=== PATIENT | male | born 1955 | race Caucasian/White ===

== ENCOUNTER → 2017-05-28 | Outpatient (CLI) | payer MEDICAID ==
[~2017-05-28] MED LIST: ASPIRIN FOR CHI81 MG PO; B COMPLEX 501 TAB PO; CYMBALTA60 MG PO; HYCODAN 5MG. TAB5 MG PO; LEVAQUIN 750 M750 MG PO; PREDNISONE 20MG20 MG PO; VENTOLIN H0.09 MG/AC IH
--- NOTE | 2017-05-31 07:23 | RADIOLOGY REPORT PS360 ---
EXAM: CT LUNG LOW DOSE WO CONTRAST COMPARISON: None HISTORY: 62 year old male with greater than 30 pack-year smoking history, asymptomatic ORDERING PHYSICIAN: JANAE HALE MD PATIENT AGE: 62 years TECHNIQUE: The exam was performed on a GE Light Speed [address] scanner using 2.96 mGy CTDI. A low dose helical CT CHEST was performed on a multi-detector scanner The LDCT was performed in a facility that meets the criteria for the screening program. Data regarding this exam was submitted to [employer] which is an approved registry. The order for this exam indicates that it came as a result of a lung cancer screening counseling shard decision-making visit that included all the elements required of such a visit including smoking cessation. The radiologist interpreting this exam meets the [facility] criteria for the LDCT lung cancer screening program. The exam is reported using the Lung-RADS classification scale and reported to the [employer] registry. NOTE: This study was performed for the specific purposes of lung cancer screening and is not an alternative to diagnostic chest CT. RADIATION DOSE: CTDI vol(CT dose Index-volume) = 2.96mG DLP (Dose Length Product) = 115.89 mGcm FINDINGS: There are severe bullous emphysematous changes with centrilobular and panlobular emphysema right greater than left there is evidence of old granulomatous disease. Calcified granuloma with some mild parenchymal distortion is present in the right upper lobe laterally. No suspicious pulmonary nodules are evident. There are scattered areas of parenchymal fibrosis. Scattered small lymph nodes are present in the mediastinum. There are coronary artery calcifications. No change 14 mm left adrenal nodule. There is an isodensity in the right hepatic lobe posteriorly unchanged IMPRESSION: 1. Lung RADS Category: 2, benign 2. Other findings: Bullous emphysematous changes Old granulomatous disease RECOMMENDATIONS: 12 month LDCT screening exam
== END ==
LOC: RAD 15:00
DX: Z87.891 Personal history of nicotine dependence (principal); J44.9 Chronic obstructive pulmonary disease, unspecified; Z12.2 Encounter for screening for malignant neoplasm of respiratory organs
CPT/HCPCS: G0297